=== PATIENT | male | born 1980 | race Two or more races ===

== ENCOUNTER 2017-05-24 08:39 | Outpatient (CLI) | payer OTHER ==
[~2017-05-24] VITALS: Ht 165.1 cm; Wt 74.2 kg
--- NOTE | ~2017-05-24 | OP ---
PATIENT NAME: JOSE ALFREDO [place] MEDICAL RECORD: [id number] :76 LOCATION:D.M2 D.2115 ADMISSION DATE:05/24/17 SURGEON: PINO JHAVERI MD DATE OF OPERATION: 05/25/2017 PROCEDURES: 1. PTCA stent LAD. 2. Selective coronary angiography. INDICATION: Angina and coronary artery disease. PROCEDURE IN DETAIL: After informed consent was obtained and after detailed description of risks, benefits as well as alternative therapies, the patient elected to proceed with angiogram and angioplasty. The left femoral area was prepped and draped in normal sterile fashion. Left femoral artery was cannulated via modified Seldinger technique with placement of 6-Azeri sheath. All catheters exchanged through this sheath. FINDINGS: The left anterior descending has 80% stenosis in mid vessel. This was addressed with a 2.5 x 14 mm Integrity stent. Result was 0% residual stenosis. OVERALL IMPRESSION: Successful percutaneous transluminal angioplasty stent of the left anterior descending going from 80% initial stenosis to 0% residual. TRANSINT:[id number] Voice Confirmation ID: [id number] DOCUMENT ID: [id number] PINO JHAVERI MD at 1056 CC: [id number] DICTATION DATE: 05/25/17 0833 EMPLOYEE BENEFITS MANAGER: 05/25/17 1223 DIS IN 05/26/[address] [address]
--- NOTE | ~2017-05-24 | HP ---
PATIENT: JOSE ALFREDO [place] MEDICAL RECORD: [id number] ACCOUNT: [id number] LOCATION:[address] : [birth year] ADMISSION DATE: 05/24/17 HISTORY AND PHYSICAL EXAMINATION ADMITTING DIAGNOSES: 1. Acute lateral myocardial infarction. 2. Coronary artery disease. 3. Diabetes. HISTORY OF PRESENT ILLNESS: This is a gentleman with no previous history of ischemic heart disease, who presents with chest discomfort, sudden onset today, has ST elevation in the lateral leads. PHYSICAL EXAMINATION: GENERAL APPEARANCE: Well-nourished, well-developed, appears stated age. Level of distress, comfortable. PSYCHIATRIC: Mental status, alert, normal affect. Orientation, oriented to time, place and person. EYES: Lids and conjunctiva, noninjected. No discharge, no pallor. ENT: Lips, teeth, gums, normal dentition. Oropharynx, no cyanosis, no pallor. NECK: Carotid arteries, bilateral normal upstroke, no bruits, no thrills. JUGULAR VEINS: No jugular venous pressure or distention. CERVICAL LYMPH NODES: Nontender, nonenlarged. THYROID: Not enlarged. Nontender. No nodules. LUNGS: Respiratory effort, unlabored. CHEST: Normal curvature. No thoracic deformity. No chest wall tenderness. Percussion, resonant. Auscultation, clear. No wheezes, no rales, no rhonchi. CARDIOVASCULAR: Precordial exam, nondisplaced. No heaves or pericardial thrills. Rate and rhythm, regular. Heart sounds, normal S1, normal S2. No S3, no gallop, no rub. Systolic murmur, not heard. Diastolic murmur, not heard. EXTREMITIES: No cyanosis, no edema. Peripheral pulses, full and equal in all extremities, except as noted. No bruits appreciated. ABDOMEN: Soft, nondistended. Normal aorta. No bruit. Nontender. No masses. Liver, nontender, no hepatomegaly. Spleen, nontender, no splenomegaly. MUSCULOSKELETAL: No joint tenderness. No joint swelling. No erythema. NEUROLOGICAL: Normal gait, normal strength, normal tone. SKIN: Warm and dry. REVIEW OF SYSTEMS: The patient reports easy bruising but reports no swollen glands. The patient reports no fever, no night sweats, no significant weight gain, no significant weight loss. No significant exercise tolerance. The patient reports no dry eyes, no irritation, no vision change. Patient reports no difficulty hearing and no ear pain. Patient reports no frequent nose bleeds or nose and sinus problems. Patient reports on arm pain on exertion. No shortness of breath while lying down. No history of heart murmur. Patient reports no cough, no wheezing or coughing up blood. Patient reports no abdominal pain, no vomiting. Normal appetite. No diarrhea and not vomiting blood. No nausea and no constipation. Patient reports no incontinence. No difficulty urinating. No hematuria. No increased frequency. Patient reports no muscle aches. No weakness, no arthralgias, no back pain. No swelling of the extremities. Patient reports no abnormal mole, no jaundice, no rashes. Reports no loss of consciousness. No weakness and no numbness. No seizures, dizziness, or headaches. The patient reports no depression, no sleep disturbance, feeling safe in a relationship and no alcohol abuse. Patient reports on fatigue. HISTORY AND PHYSICAL [id number] LIZETTJOSE ALFREDO Reports no runny nose or sinus pressure. No itching, no hives, and no frequent sneezing. OVERALL IMPRESSION: Acute lateral myocardial infarction. We will proceed with coronary angiography. Further care depends upon the findings of the angiography. TRANSINT:[id number] Voice Confirmation ID: [id number] DOCUMENT ID: [id number] PINO JHAVERI MD at 1056 CC: [id number] DICTATION DATE: 05/24/17 0933 TRAINING AND DEVELOPMENT HEAD: 05/24/17 1139 DIS IN 05/26/17 [place] [address]
--- NOTE | ~2017-05-24 | HEMODYNAMI ---
PATIENT:JOSE ALFREDO [facility] MEDICAL RECORD: [id number] : 76 [id number] AD[facility]ION DATE: 05/24/17 Generatedon:05/24/20179:44 Patient name: JOSE ALFREDO [facility] Patient #: [id number] SSN: : 1980 Date of study: 05/24/2017 Page: Of Hemodynamic Procedure Report Patient Data Patient Demographics Procedure consent was obtained First Name: JOSE ALFREDO Gender: Male Last Name: LIZETT : 1980 Patient #: [id number] Age: 36 year(s) Race: Other Additional ID: [id number] Contact details Address: [address] [place] [address] State: [place] City: [place] Zip code: [address] Past Medical History Allergies: No known allergies Admission Admission Data Admission Date: 05/24/2017 Admission Time: 8:39 Lab Results Lab Result Date: 05/24/2017 Lab Result Time: 8:50 CBC Name Units Result Min Max Hematocrit % 47.3 --(-*--)-- 42 54 Hemoglobin g/dl 17.1 --(---*)-- 13.5 17.5 Procedure Procedure Types Cath Procedure Diagnostic Procedure [facility] LH w/Coronaries PCI Procedure AMI/SVG/REGIONAL CLIMATE CHANGE ANALYST PTCA or Stent AMI-BMS/GUME Initial Procedure Description Procedure Date Procedure Date: 05/24/2017 Procedure Start Time: 9:13 Procedure End Time: 9:33 Procedure Staff Name Function Yusra Flanagan RT Scrub Giancarlo Larson RN Nurse Miles Silva MD Performing Physician Smith Balbuena RT Monitor Procedure Data Cath Procedure Fluoroscopy Diagnostic fluoroscopy Total fluoroscopy Time: 4.1 time: 4.1 min min Diagnostic fluoroscopy Total fluoroscopy dose: 760 dose: 760 mGy mGy Contrast Material Contrast Material Type Amount (ml) Isovue 300 111 Entry Location Entry Primary Successful Side Size Upsize Upsize Entry Closure Succes sful Closure Location (Fr) 1 (Fr) 2 (Fr) Remarks Device Remarks Femoral Right 6 Fr Exoseal artery Short Estimated blood loss: 10 ml Diagnostic catheters Device Type Used For End Catheter Placement MULTIPACK Pigtail 5 Fr Procedure catheter MULTIPACK JL 4.0 5Fr Procedure catheter MULTIPACK 3DRC 5Fr Procedure catheter Procedure Complications No complications Procedure Medications Medication Administration Route Dosage Oxygen NC 2 l/min Lidocaine 2% added to field 20 Heparin Flush Bag added to field 2 bags (1000units/500ml NS) 0.9% NaCl I.V. 100 ml/hr Versed I.V. 1 mg Fentanyl I.V. 50 mcg Lopressor I.V. 5 mg Heparin Bolus I.V. 4000 units Integrilin (Bolus I.V. 7.3 ml 2mg/ml) Hemodynamics Rest Heart Rate: 88 (bpm) Snapshots Pre Cath Intra NCS Post Cath Vital Signs Time Heart Resp SPO2 etCO2 NIBP (mmHg) Rhythm Pain Sedation Rate (ipm) (%) (mmHg) Status Level (bpm) 9:01:25 96 19 98 29.2 171/115(138) NSR 7 (11) 10(A) , Very intense 9:06:16 88 21 98 27.8 176/126(147) NSR 7 (11) 10(A) , Very intense 9:11:09 91 22 98 27 191/134(161) NSR 7 (11) 10(A) , Very intense 9:16:06 101 23 98 30 193/136(164) ST 0 (11) 9(A) , No pain 9:20:53 84 16 97 33 161/106(134) NSR 0 (11) 9(A) , No pain 9:25:37 74 22 97 27 145/97(115) NSR 0 (11) 10(A) , No pain 9:30:20 60 23 98 26.3 146/87(104) NSR 0 (11) 10(A) , No pain Medications Time Medication Route Dose Verified Delivered Reason Notes Effectiveness by by 9:02:05 Oxygen NC 2 Miles Mondragon used for l/min Shira Larson repairer maintenance building 9:02:18 Lidocaine 2% added 20ml Miles Aquino for local to vial Shira Silva MD anesthetic field 9:02:24 Heparin Flush added 2 Miles Aquino used for Bag to bags Shira Silva MD procedure (1000units/500ml field NS) 9:07:29 0.9% NaCl I.V. 100 Miles Mondragon Per physician ml/hr Shira Larson RN 9:13:13 Versed I.V. 1 mg Miles Mondragon for sedation Shira Larson RN 9:13:18 Fentanyl I.V. 50 Miles Mondragon for sedation mcg Shira Larson RN 9:16:09 Lopressor I.V. 5 mg Miles Mondragon Per physician Shira Larson RN 9:19:10 Heparin Bolus I.V. 4000 Miles Mondragon for verifie d units Shira Larson RN anticoagulation with dr silva 9:19:45 Integrilin I.V. 7.3 Miles Mondragon for wasted (Bolus 2mg/ml) ml Shira Larson RN antiplatelet 2.7 ml therapy of vial Procedure Log Time Note 8:50:59 Time tracking: Regular hours 8:51:03 Plan of Care:Hemodynamics will remain stable., Cardiac rhythm will remain stable., Comfort level will be maintained., Respiratory function will remain adequate., Patient/ family verbilizes understanding of procedure., Procedure tolerated without complication., Recovers from procedure without complications.. 8:51:31 Giancarlo Larson RN sent for patient. Start room use. 8:58:31 Patient received from ED to CCL 1 Alert and oriented. Tansferred to table in Supine position. 8:58:33 Correct patient and procedure confirmed by team. 8:58:33 Warm blankets applied, and zoey hugger turned on for patient comfort. 8:58:35 Signed procedure consent form obtained from patient. 8:58:36 ECG and BP/O2 sat monitors applied to patient. 9:00:23 Vital chart was started 9:00:35 Full Disclosure recording started 9:02:05 Oxygen 2 l/min NC was administered by Giancarlo Larson RN; used for procedure; 9:02:18 Lidocaine 2% 20ml vial added to field was administered by Miles Silva MD; for local anesthetic; 9:02:24 Heparin Flush Bag (1000units/500ml NS) 2 bags added to field was administered by Miles Silva MD; used for procedure; 9:06:18 Baseline sample Acquired. 9:06:35 Rhythm: sinus rhythm , w/ ST elevation 9:06:43 H&P Date Dictated: 05/24/2017 ER History on chart.. 9:06:45 Pre-op teaching completed and patient verbalized understanding. 9:06:45 Pre-procedure instructions explained to patient. 9:06:46 Family in waiting room. 9:06:49 Patient NPO since Midnight. 9:06:53 Patient allergic to No known allergies 9:06:55 Is the patient allergic to Iodine/contrast media? No. 9:06:56 Is patient on blood thinner?Yes 9:06:59 ACC The patient was administered the following blood thiners within the last 24 hours: ACCPlavix, ACCHeparin 9:07:01 Patient diabetic? Yes. Non Compliant. 9:07:16 If diabetic: On Metformin? No 9:07:29 0.9% NaCl 100 ml/hr I.V. was administered by Giancarlo Larson RN; Per physician; 9:08:17 Previous problem with sedation/anesthesia? No ? 9:08:19 Sleep apnea? No 9:08:19 Snore? Yes 9:08:20 Deviated septum? No 9:08:21 Opens mouth fully? Yes 9:08:22 Sticks out tongue? Yes 9:08:24 Airway obstruction? No ? 9:08:25 Dentures? No ? 9:08:28 Pre procedure: right dorsailis pedis pulse 2+ Normal; easily identifiable; not easily obliterated 9:08:29 Patient pain scale 7/10 ?. 9:08:40 IV patent on arrival in left antecubital with 0.9% NaCl at KVO. 9:09:02 Lab Result : Hemoglobin 17.1 g/dl 9:09:03 Lab Result : Hematocrit 47.3 % 9:09:07 Lab results completed and on chart. 9:09:09 Right groin area was prepped with chlora-prep and draped in sterile fashion 9:09:10 Sharps counted by scrub and verified by R.N. 9:09:10 Alarms reviewed by R. N. 9:09:14 Use device set Femoral Dx 9:09:16 Bag Decanter (2002) opened to sterile field. 9:09:16 ACIST Syringe (43189) opened to sterile field. 9:09:17 Medline Cath Pack ([id number]) opened to sterile field. 9:09:18 ACIST Manifold (64632) opened to sterile field. 9:09:18 ACIST Hand Control (00491) opened to sterile field. 9:09:19 Tegaderm 4 x 4 (1626W) opened to sterile field. 9::20 PERCUTANEOUS ENTRY 19GA needle opened to sterile field. 9:09:21 DIAGNOSTIC Multipack 5Fr catheter set (MZ2783) opened to sterile field. 9:09:24 DIAGNOSTIC WIRE .035 260cm J wire (087979) opened to sterile field. :: Final Timeout: patient, procedure, and site verified with staff and physician. All members of the team are in agreement. : --------ALL STOP TIME OUT------ : Physician arrived 9::43 Right groin site verified by team. 9::46 Physical assessment completed. ASA score P 4 - A patient with severe systemic disease that is a constant threat to life as per Miles Silva MD. 9::48 Sedation plan: IV Moderate Sedation Medication:Versed, Fentanyl 9:12:21 Zero performed for pressure channel P1 9:12:25 Zero performed for pressure channel P1 9:: SHEATH 6Fr Prelude ([id number]) opened to sterile field. 9:13:13 Versed 1 mg I.V. was administered by Giancarlo Larson RN; for sedation; ::18 Fentanyl 50 mcg I.V. was administered by Giancarlo Larson RN; for sedation; 9:13:21 Procedure started. 9:13:23 Local anesthetic to right femoral artery with Lidocaine 2% by Miles Silva MD.INITIAL ACCESS ONLY 9:14:22 A 6 Fr Short sheath was inserted into the Right Femoral artery 9:15:07 A MULTIPACK Pigtail 5 Fr catheter was advanced over the wire and used for Procedure. 9:15:31 LV gram done using CHONG 9:15:42 EF : 20 % 9:15:59 Catheter exchanged over wire. 9:16:09 Lopressor 5 mg I.V. was administered by Giancarlo Larson RN; Per physician; 9:16:10 A MULTIPACK JL 4.0 5Fr catheter was advanced over the wire and used for Procedure. 9:17:09 LCA angiography performed. 9:19:10 Heparin Bolus 4000 units I.V. was administered by Giancarlo Larson RN; for anticoagulation; verified with dr silva 9:19:15 Catheter exchanged over wire. 9:19:20 A MULTIPACK 3DRC 5Fr catheter was advanced over the wire and used for Procedure. 9:19:25 RCA angiography performed. 9::28 Catheter exchanged over wire. 9:19:34 GUIDE 6FR XB 4.0 catheter ([id number]) opened to sterile field. 9:19:44 6 Fr XB 4 guide catheter was inserted over the wire 9:19:45 Integrilin (Bolus 2mg/ml) 7.3 ml I.V. was administered by Giancarlo Larson RN; for antiplatelet therapy; wasted 2.7 ml of vial 9:20:05 CHOICE PT Extra Support J 300cm guide wire ([id number]) opened to sterile field. 9:20:17 choice PT wire advanced. 9:20:36 Wire advanced across lesion. 9:21:04 Inflate balloon Inflation number: 1 A EMERGE OTW 3.0 x 20 balloon ([id number]) was prepped and advanced across the Prox CX, then inflated to 13 RUPESH for 0:10 (min:sec). 9:21:18 Balloon removed over the wire. 9:23:10 Place stent Inflation Number: 2 A INTEGRITY OTW 4.0 X 18 stent ([id number]) was prepped and advanced across the Prox CX. The stent was deployed at 15 RUPESH for 0:10 (min:sec). 9:23:37 Wire removed. 9:23:37 Stent catheter was removed intact over wire. 9:23:39 Guide catheter removed. 9:23:48 EXOSEAL 6Fr (EX600) opened to sterile field. 9:24:13 Sheath removed intact; hemostasis achieved with Exoseal to the Right Femoral artery. 9:24:15 Procedure ended.(Physican Out) 9:27:12 Fluoroscopy time 04.10 minutes. 9:27:15 Fluoroscopy dose: 760 mGy 9:27:15 Flurop Dose total: 760 9:27:18 Contrast amount:Isovue 300 111ml. 9:27:31 Sharps counted by scrub and verified by R.N. 9:28:23 Insertion/operative site no bleeding no hematoma. 9:28:25 Post-op/insertion site Right Femoral artery dressed using a 4 x 4 and Tegaderm. 9:28:29 Post right femoral artery:stable, soft, clean and dry 9:28:41 Post Procedure Pulses reassessed and unchanged 9::44 Post procedure: right dorsailis pedis pulse 2+ Normal; easily identifiable; not easily obliterated. 9:28:47 Post-procedure physical assessment completed. ASA score P 4 - A patient with severe systemic disease that is a constant threat to life as per Miles Silva MD. 9:29:23 Post procedure rhythm: sinus rhythm 9:: Estimated blood loss: 10 ml 9:29:28 Patient needs reinforcement of post procedure teaching. 9:29:28 Post procedure instruction explained to patient.Patient verbalizes understanding. 9:29:57 Procedure type changed to Cath procedure, Diagnostic procedure, LHC, LHC w/Coronaries, PCI procedure, AMI/SVG/REGIONAL CLIMATE CHANGE ANALYST PTCA or Stent, AMI-BMS/GUME Initial 9:32:26 INFLATOR Merit BasixCompak (XX7686) opened to sterile field. 9:32:53 Procedure and supply charges have been captured, reviewed, submitted and are correct. 9:32:55 Procedure Complication : No complications 9:33:04 Vital chart was stopped 9:33:05 See physician's report for complete and final results. 9:33:07 Report given to PCU. 9:33:10 Patient transfered to PCU with Stretcher. 9:33:15 Full Disclosure recording stopped 9:33:15 Procedure ended. 9:33:22 End room use (Document Last) 9:43:13 FEMSTOP Gold ([id number]) opened to sterile field. 9:43:33 Femstop placed over the right femoral artery at 163 mmHg. Hemostasis achieved. Intervention Summary Intervention Notes Time ActionType Lesion and Equipment Action# Pressure Duration Attributes Used 9:21:04 Inflate Prox CX EMERGE OTW 1 13 00:10 balloon 3.0 x 20 balloon ([id number]) 9:23:10 Place stent Prox CX INTEGRITY 2 15 00:10 OTW 4.0 X 18 stent ([id number]) Device Usage Item Name Manufacture Quantity Catalog Number Hospital Part Current Mini mal Lot# / Charge Number Stock Stock Serial# Code ACIST Acist 1 91263 601100 428859 101470 20 Straatum Processware (58320) Urban Airship Bag Decanter Microtek 1 689774 59808 221711 5 (2002S) Medical Inc. Medline Cath Cardinal 1 [id number] 262867 20820 429546 5 Pack Health ([id number]) ACIST Hand Acist 1 71936 479023 125275 587946 5 Control Medical (50001) Systems Inc ACIST Acist 1 36701 868636 564628 015887 5 Manifold Medical (47026) Systems Inc Tegaderm 4 x 3M 1 1626W 687466 190767 893015 5 4 (1626W) PERCUTANEOUS Cook Medical 1 S02558 617167 840834 5 ENTRY 19GA needle DIAGNOSTIC Cardinal 1 ET1482 421299 68114 836289 30 Multipack VoxPopMe 5Fr catheter set (BI3978) DIAGNOSTIC [facility] Conner 1 172363 133309 835400 343403 30 WIRE .035 260cm J wire (363710) SHEATH 6Fr Merit 1 [id number] 394062 280886 910493 5 Prelude Medical ([id number]) MULTIPACK Cardinal 1 560116 5 Pigtail 5 Fr Health catheter MULTIPACK JL Cardinal 1 762260 5 4.0 5Fr Health catheter MULTIPACK Cardinal 1 018012 5 3DRC 5Fr Health catheter GUIDE 6FR XB Cardinal 1 [id number] 393498 167255 192203 2 4.0 catheter VoxPopMe ([id number]) CHOICE PT Gaffney 1 [id number] 159347 287364 840503 5 Extra Scientific Support J 300cm guide wire ([id number]) EMERGE OTW Gaffney 1 [id number] 025238 907977 729443 5 [id number] 3.0 x 20 Scientific balloon ([id number]) INTEGRITY Medtronic 1 [id number] 476984 393684 3 [id number] OTW 4.0 X 18 stent ([id number]) EXOSEAL 6Fr Cardinal 1 EX600 266076 407080 464367 10 (EX600) Health INFLATOR Merit 1 OV7726 201997 550655 750193 15 [facility] Medical BasixCompak (BN1496) FEMSTOP Gold [facility] Conner 1 I75026 214632 906920 448248 5 ([id number]) Signature Audit [place] Stage Time Signature Unsigned Intra-Procedure 05/24/2017 Smith Balbuena RT(R); 9:34:01 AM RT(R); Yusra Meng RT(R) 05/24/2017 Counts RT(R) 9:43:10 AM Intra-Procedure 05/24/2017 Smith Balbuena 9:44:36 AM RT(R) Signatures Monitor : Smith Balbuena RT Signature : Date : Time : [place] [id number] [place] [address]
--- NOTE | ~2017-05-24 | OP ---
PATIENT NAME: JOSE ALFREDO [facility] MEDICAL RECORD: [id number] :76 LOCATION:D.M2 D.2115 ADMISSION DATE:05/24/17 SURGEON: PINO JHAVERI MD DATE OF OPERATION: 05/24/2017 PROCEDURES: 1. PTCA stent left circumflex. 2. Left heart catheterization. 3. Selective coronary angiography. 4. Left ventriculogram. INDICATION: Acute lateral myocardial infarction. PROCEDURE IN DETAIL: After informed consent was obtained and after a detailed description of risks, benefits as well as alternative therapies, the patient elected to proceed with angiogram and angioplasty. The right femoral area was prepped and draped in normal sterile fashion. Right femoral artery was cannulated via modified Seldinger technique with placement of 6-Malawian sheath. All catheters exchanged through this sheath. FINDINGS: The left ventriculogram was performed in standard 30-degree CHONG view, reveals global hypokinesis throughout all segments. Overall ejection fraction estimated at 25% to 30%. SELECTIVE CORONARY ANGIOGRAPHY: 1. Left main is with no significant angiographic disease. 2. Left anterior descending has at least 70% stenosis in the mid vessel. 3. Left circumflex is very large vessel with 99% stenosis in the mid vessel. 4. The right coronary artery has moderate irregularities, but no flow-limiting stenosis. PTCA STENT OF LEFT CIRCUMFLEX: The stent used was a 4.0 x 18 mm Integrity. Result was 0% residual stenosis. OVERALL IMPRESSION: Successful percutaneous transluminal coronary angioplasty stent of the left circumflex going from 99% initial stenosis to 0% residual. TRANSINT:[id number] Voice Confirmation ID: [id number] DOCUMENT ID: [id number] PINO JHAVERI MD at 1056 CC: [id number] DICTATION DATE: 05/24/17 0935 PHOTOGRAPHIC EQUIPMENT ASSEMBLER: 05/24/17 1242 DIS IN 05/26/17 [place] [address]
--- NOTE | ~2017-05-24 | HEMODYNAMI ---
PATIENT:JOSE ALFREDO PHOENIX MEDICAL RECORD: [id number] : [birth year] LOCATION:[address] [facility]# [id number] ADMISSION DATE: 05/24/17 Generatedon:05/25/20178:31 Patient name: JOSE ALFREDO PHOENIX Patient #: [id number] SSN: : 1980 Date of study: 05/25/2017 Page: Of Hemodynamic Procedure Report Patient Data Patient Demographics Procedure consent was obtained First Name: JOSE ALFREDO Gender: Male Last Name: LIZETT : 1980 Patient #: [id number] Age: 36 year(s) Race: Other Additional ID: [id number] Contact details [address]: [address] [place] [address] State: [place] City: [place] Zip code: [address] Past Medical History Allergies: No known allergies Admission Admission Data Admission Date: 05/24/2017 Admission Time: 10:52 Room #: D2115 Lab Results Lab Result Date: 05/25/2017 Lab Result Time: 0:00 Biochemistry Name Units Result Min Max Creatinine mg/dl 0.9 --(-*--)-- 0.6 1.3 Procedure Procedure Types Cath Procedure PCI Procedure Coronary Stent Coronary Stent Initial Procedure Description Procedure Date Procedure Date: 05/25/2017 Procedure Start Time: 8:20 Procedure End Time: 8:29 Procedure Staff Name Function Miles Silva MD Performing Physician Kayla Guadalupe RT Scrub Trent Ennis RT Monitor Giancarlo Larson RN Nurse Procedure Data Cath Procedure Fluoroscopy Diagnostic fluoroscopy Total fluoroscopy Time: 1.7 time: 1.7 min min Diagnostic fluoroscopy Total fluoroscopy dose: 386 dose: 386 mGy mGy Contrast Material Contrast Material Type Amount (ml) Isovue 300 35 Entry Location Entry Primary Successful Side Size Upsize Upsize Entry Closure Succes sful Closure Location (Fr) 1 (Fr) 2 (Fr) Remarks Device Remarks Femoral Left 6 Fr Exoseal artery Short Estimated blood loss: 10 ml Procedure Complications No complications Procedure Medications Medication Administration Route Dosage Oxygen NC 2 l/min Lidocaine 2% added to field 20 Heparin Flush Bag added to field 2 bags (1000units/500ml NS) 0.9% NaCl I.V. 100 ml/hr Radial Cocktail I.A. 1 syringe (Verapomil 2mg/Nitro 400mcg/Heparin 1500units) Versed I.V. 1 mg Fentanyl I.V. 50 mcg Versed I.V. 1 mg Fentanyl I.V. 50 mcg Heparin Bolus I.V. 4000 units Hemodynamics Rest HGB: 17.1 (g/dl) Heart Rate: 55 (bpm) Snapshots Pre Cath Intra NCS Post Cath Vital Signs Time Heart Resp SPO2 etCO2 NIBP (mmHg) Rhythm Pain Status Sedation Rate (ipm) (%) (mmHg) Level (bpm) 7:55:39 65 26 97 27.2 164/107(127) NSR w/ ST 4 (11) , 10(A) Elevation Distressing 7:59:59 72 29 95 25.7 164/112(124) NSR w/ ST 4 (11) , 10(A) Elevation Distressing 8:04:15 66 27 96 24.2 152/103(126) NSR w/ ST 4 (11) , 10(A) Elevation Distressing 8:08:31 65 18 95 28.7 146/105(117) NSR w/ ST 4 (11) , 10(A) Elevation Distressing 8:12:43 63 17 95 24.9 132/90(105) NSR w/ ST 4 (11) , 10(A) Elevation Distressing 8:16:51 63 14 96 26.5 128/92(106) NSR w/ ST 0 (11) , No 9(A) Elevation pain 8:21:03 58 16 95 32.5 119/71(84) NSR w/ ST 0 (11) , No 9(A) Elevation pain 8:25:11 66 14 97 30.2 114/80(93) NSR w/ ST 0 (11) , No 9(A) Elevation pain 8:29:15 59 15 96 30.2 110/84(93) NSR w/ ST 0 (11) , No 10(A) Elevation pain Medications Time Medication Route Dose Verified Delivered Reason Notes Effectiveness by by 8:10:45 Oxygen NC 2 l/min Miles Mondragon used for Tauth MD Larson supervisor lamp shades 8:10:51 Lidocaine 2% added 20ml Miles Mondragon used for to vial Shira Larson RN procedure field 8:11:00 Heparin Flush added 2 bags Miles Mondragon used for Bag to Shira Larson RN procedure (1000units/500ml field NS) 8:11:08 0.9% NaCl I.V. 100 Miles Mondragon Per physician ml/hr Shira Larson RN 8:11:18 Radial Cocktail I.A. 1 Miles Aquino for not u sed (Verapomil syringe Shira Silva MD vasodilation 2mg/Nitro 400mcg/Heparin 1500units) 8:13:21 Versed I.V. 1 mg Miles Mondragon for sedation Shira Larson RN 8:13:27 Fentanyl I.V. 50 mcg Miles Mondragon for sedation Shira Larson RN 8:20:13 Versed I.V. 1 mg Miles Mondragon for sedation Shira Larson RN 8:20:16 Fentanyl I.V. 50 mcg Miles Mondragon for sedation Shira Larson RN 8:22:42 Heparin Bolus I.V. 4000 Miles Mondragon for verif ied units Shira Larson RN anticoagulation with dr silva Procedure Log Time Note 7:35:00 Time tracking: Regular hours 7:35:03 Plan of Care:Hemodynamics will remain stable., Cardiac rhythm will remain stable., Comfort level will be maintained., Respiratory function will remain adequate., Patient/ family verbilizes understanding of procedure., Procedure tolerated without complication., Recovers from procedure without complications.. 7:35:04 Signed procedure consent form obtained from patient. 7:35:15 H&P Date Dictated: 05/24/2017 Within 30 days and on chart.. 7:35:56 Lab Result : Creatinine 0.9 mg/dl 7:36:23 Giancarlo Larson RN sent for patient. Start room use. 7:41:41 Patient allergic to No known allergies 7:47:08 Patient received from Med II to CCL 2 Alert and oriented. Tansferred to table in Supine position. 7:47:08 Warm blankets applied, and zoey hugger turned on for patient comfort. 7:47:09 Correct patient and procedure confirmed by team. 7:47:10 ECG and BP/O2 sat monitors applied to patient. 7:54:30 Vital chart was started 7:54:31 Baseline sample Acquired. 7:56:01 Baseline sample Acquired. 7:56:40 Rhythm: sinus rhythm 7:56:46 Full Disclosure recording started 7:56:47 Pre-procedure instructions explained to patient. 7:56:49 Pre-op teaching completed and patient verbalized understanding. 7:56:53 Family in patients room. 7:56:56 Patient NPO since Midnight. 7:56:59 Is the patient allergic to Iodine/contrast media? No. 7:57:21 Was the patient premedicated? No 7:58:07 Is patient on blood thinner?Yes 7:58:11 ACC The patient was administered the following blood thiners within the last 24 hours: ACCPlavix 7:59:05 Patient diabetic? Yes. 7:59:08 If diabetic: On Metformin? No 7:59:47 PATIENT IS NON COMPLIANT 7:59:57 ----Pre-sedation anethsthesia assessment.---- 8:00:03 Previous problem with sedation/anesthesia? No ? 8:00:30 Snore? Yes 8:00:32 Sleep apnea? No 8:00:34 Deviated septum? No 8:00:35 Opens mouth fully? Yes 8:00:36 Sticks out tongue? Yes 8:00:38 Airway obstruction? No ? 8:01:20 IV patent on arrival in right hand with 0.9% NaCl at [facility]. 8:01:41 Lab results completed and on chart. 8:01:49 Right Radial & Left Groin area was prepped with chlora-prep and draped in sterile fashion 8:01:51 Alarms reviewed by R. N. 8:01:52 Sharps counted by scrub and verified by R.N. 8:04:44 Pre procedure: right dorsailis pedis pulse 2+ Normal; easily identifiable; not easily obliterated 8:04:50 Modified Mikal's test Ulnar < 7 seconds 8:05:03 Patient pain scale 0/10 ?. 8:10:45 Oxygen 2 l/min NC was administered by Giancarlo Larson RN; used for procedure; 8:10:51 Lidocaine 2% 20ml vial added to field was administered by Giancarlo Larson RN; used for procedure; 8:11:00 Heparin Flush Bag (1000units/500ml NS) 2 bags added to field was administered by Giancarlo Larson RN; used for procedure; 8:11:08 0.9% NaCl 100 ml/hr I.V. was administered by Giancarlo Larson RN; Per physician; 8:11:18 Radial Cocktail (Verapomil 2mg/Nitro 400mcg/Heparin 1500units) 1 syringe I.A. was administered by Miles Silva MD; for vasodilation; not used 8:12:16 --------ALL STOP TIME OUT------ 8:12:17 Final Timeout: patient, procedure, and site verified with staff and physician. All members of the team are in agreement. 8:12:20 Right Radial & Left Groin site verified by team. 8:12:23 Physical assessment completed. ASA score P 2 - A patient with mild systemic disease as per Miles Silva MD. 8:12:26 Sedation plan: IV Moderate Sedation Medication:Versed, Fentanyl 8:12:33 Use device set Radial Dx or PCI 8:12:37 Tegaderm 4 x 4 (1626W) opened to sterile field. 8:12:39 ACIST Hand Control (65675) opened to sterile field. 8:12:39 ACIST Manifold (76521) opened to sterile field. 8:12:40 ACIST Syringe (54952) opened to sterile field. 8:12:41 Medline Cath Pack ([id number]) opened to sterile field. 8:12:42 Bag Decanter () opened to sterile field. 8:12:43 DIAGNOSTIC WIRE .035 260cm J wire (060455) opened to sterile field. 8:12:44 MBrace Wrist Support ([id number]) opened to sterile field. 8:12:47 Use device set TAUTH PCI 8:12:51 CHOICE PT Extra Support 182cm wire ([id number]) opened to sterile field. 8:12:56 INFLATOR Merit BasixCompak (ZF9858) opened to sterile field. 8:13:21 Versed 1 mg I.V. was administered by Giancarlo Larson RN; for sedation; 8:13:21 SHEATH 6Fr Prelude Radial ([id number]) opened to sterile field. 8:13:27 Fentanyl 50 mcg I.V. was administered by Giancarlo Larson RN; for sedation; 8:18:21 GUIDE 6FR XBLAD 3.5 catheter ([id number]) opened to sterile field. 8:18:54 Physician has opted for femoral approach. 8:19:41 PERCUTANEOUS ENTRY 19GA needle opened to sterile field. 8:20:13 Versed 1 mg I.V. was administered by Giancarlo Larson RN; for sedation; 8:20:16 Fentanyl 50 mcg I.V. was administered by Giancarlo Larson RN; for sedation; 8:20:17 Procedure started. 8:20:48 Local anesthetic to left femerol artery with Lidocaine 2% by Miles Silva MD.INITIAL ACCESS ONLY 8:20:59 A 6 Fr Short sheath was inserted into the Left Femoral artery 8:21:09 6 Fr XBLAD 3.5 guide catheter was inserted over the wire 8:22:01 Baseline sample Acquired. 8:22:09 LCA angiography performed. 8:22:42 Heparin Bolus 4000 units I.V. was administered by Giancarlo Larson RN; for anticoagulation; verified with dr silva 8:23:18 Choice PT XS wire advanced. 8:23:42 Wire advanced across lesion. 8:24:52 Place stent Inflation Number: 1 A INTEGRITY RX 2.5 x 14 stent ([id number]) was prepped and advanced across the Mid LAD. The stent was deployed at 13 RUPESH for 0:10 (min:sec). 8:25:12 Stent catheter was removed intact over wire. 8:25:12 Wire removed. 8:25:13 Guide catheter removed. 8:25:16 EXOSEAL 6Fr (EX600) opened to sterile field. 8:25:25 Sheath removed intact; hemostasis achieved with Exoseal to the Left Femoral artery. 8:25:27 Procedure ended.(Physican Out) 8:28:33 Fluoroscopy time 01.70 minutes. 8:28:37 Fluoroscopy dose: 386 mGy 8:28:37 Flurop Dose total: 386 8::41 Contrast amount:Isovue 300 35ml. 8:28:43 Sharps counted by scrub and verified by R.N. 8:28:45 Insertion/operative site no bleeding no hematoma. 8:28:48 Post-op/insertion site Left Femoral artery dressed using a 4 x 4 and Tegaderm. 8:28:50 Post Procedure Pulses reassessed and unchanged 8:28:53 Post-procedure physical assessment completed. ASA score P 2 - A patient with mild systemic disease as per Miles Silva MD. 8:28:56 Post procedure rhythm: unchanged. 8:28:59 Estimated blood loss: 10 ml 8:29:00 Post procedure instruction explained to patient.Patient verbalizes understanding. 8:29:01 Patient needs reinforcement of post procedure teaching. 8:29:08 Procedure Complication : No complications 8:29:10 Procedure and supply charges have been captured, reviewed, submitted and are correct. 8:29:32 Vital chart was stopped 8:29:33 See physician's report for complete and final results. 8:29:34 Report given to PCU. 8:29:37 Patient transfered to PCU with Bed. 8:29:40 Procedure ended. 8:29:40 Full Disclosure recording stopped 8:31:11 End room use (Document Last) Intervention Summary Intervention Notes Time ActionType Lesion and Equipment Action# Pressure Duration Attributes Used 8:24:52 Place stent Mid LAD INTEGRITY RX 1 13 00:10 2.5 x 14 stent ([id number]) Device Usage Item Name Manufacture Quantity Catalog Number Hospital Part Current M inimal Lot# / Charge Number Stock Stock Serial# Code Tegaderm 4 x 4 3M 1 [id number] 190964 352553 5 (1626W) ACIST Hand Acist 1 72251 230285 979702 055697 5 Control (76052) [employer] Inc ACIST Manifold Acist 1 64191 059172 062126 936070 5 (07837) [employer] ACIST Syringe Acist 1 18471 967086 005395 841211 2 0 (03935) Medical Systems Inc Medline Cath Cardinal 1 [id number] 822840 97028 331322 5 Pack Health ([id number]) Bag Decanter Microtek 1 2001S 387056 52936 283202 5 (2001S) Medical Inc. DIAGNOSTIC WIRE [facility] 1 315391 340806 148163 342634 3 0 .035 260cm J wire (844103) MBrace Wrist Advanced 1 140-0250-00 562335 80437 054142 5 Support Vascular ([id number]) Dynamics CHOICE PT Extra Sparks 1 [id number] 542577 706694 830421 5 Support 182cm Scientific wire ([id number]) INFLATOR Merit Merit 1 EQ3661 496200 586021 090190 1 5 BasixComVtion Wireless Technology Medical (VJ3017) SHEATH 6Fr Merit 1 [id number] 939927 843833 717174 5 Prelude Radial Medical ([id number]) GUIDE 6FR XBLAD Cardinal 1 [id number] 112010 281777 788836 1 0 3.5 catheter Health (14618036) PERCUTANEOUS Cook Medical 1 H41973 472365 531957 5 ENTRY 19GA needle INTEGRITY RX Medtronic 1 [id number] 176313 242309 640478 5 [id number] 2.5 x 14 stent ([id number]) EXOSEAL 6Fr Cardinal 1 EX600 101050 504357 345683 1 0 (EX600) Health Signature Audit [place] Stage Time Signature Unsigned Intra-Procedure 05/25/2017 Trent Ennis 8:31:23 AM RT(R) Signatures Monitor : Trent Ennis RT Signature : Date : Time : [place] [id number] [facility] [place] [address]
--- NOTE | ~2017-05-24 | DS ---
PATIENT:JOSE ALFREDO PHOENIX :76 MEDICAL RECORD: [id number] DISCHARGE SUMMARY ADMISSION DATE: 05/24/17 DISCHARGE DATE: 05/26/17 DATE OF SERVICE: 05/25/2017. DIAGNOSES: 1. Acute lateral myocardial infarction. 2. Percutaneous transluminal coronary angioplasty stent left anterior descending and left circumflex this admission. 3. Coronary artery disease. 4. Diabetes. 5. Hyperlipidemia. HOSPITAL COURSE: This is a gentleman who is very noncompliant diabetic who presents with the sudden onset of chest discomfort, found to have acute lateral myocardial infarction, underwent cardiac catheterization revealing subtotal occlusion of his left circumflex, underwent successful PTCA stent of the left circumflex as well had concomitant disease of the LAD, underwent successful PTCA stent of the LAD, was discharged home with the addition of Glucotrol, aspirin, Plavix, Pravachol, and Lopressor to his medical regimen. He will follow up with [facility] in 1 month. TRANSINT:[id number] Voice Confirmation ID: [id number] DOCUMENT ID: [id number] PINO JHAVERI MD at 1056 CC: [id number] DICTATION DATE: 05/25/17 0832 ESTHETICIAN/SKIN THERAPIST: 05/25/17 1259 DIS IN 05/26/17 [id number] [place] [address]
[2017-05-24 08:58] LABS: BASOPHILS 0.1 % (0-2); EOSINOPHILS 0 % (0-7); HEMATOCRIT 47.3 % (42.0-54.0); HEMOGLOBIN 17.1 g/dL (13.5-17.5); IMMATURE GRANULOCYTES 0.4 % (0-5); LYMPHOCYTES 5.1 % (15-50); MCH 32.1 pg (26.0-34.0); MCHC 36.2 g/dL (31.0-37.0); MCV 88.7 fL (80.0-100.0); MEAN PLATELET VOLUME 11.6 fL (7.4-10.4); NEUTROPHILS 89.4 % (40-80); PLATELET COUNT 235 10x3/uL (130-400); RBC 5.33 10x6/uL (4.20-6.10); RDW 12.1 % (11.5-14.5); WBC 18.3 10x3/uL (4.8-10.8)
[2017-05-24 09:06] LABS: APTT 25.8 SECONDS (22.8-39.4); INR 1.09 (0.85-1.17); PROTIME 13.7 SECONDS (11.6-15.0)
[2017-05-24 09:27] LABS: ALBUMIN 4.3 g/dL (3.4-5.0); ALKALINE PHOSPHATASE 205 U/L (46-116); ALT (SGPT) 27 U/L (10-68); BILIRUBIN - TOTAL 0.72 mg/dL (0.2-1.3); CALCIUM 8.5 mg/dL (8.5-10.1); CARBON DIOXIDE 18.4 mmol/L (21.0-32.0); CHLORIDE - SERUM 97 mmol/L (98-107); CHOL - HDL RATIO 5.8 ratio (2.3-4.9); CHOLESTEROL, TOTAL 210 mg/dL (0-200); CREATININE - SERUM 0.9 mg/dL (0.6-1.3); HDL CHOLESTEROL 36 mg/dL (32-96); LDL CHOLESTEROL 142 mg/dL (0-100); LDL-HDL RATIO 3.9 ratio (1.5-3.5); POTASSIUM - SERUM 3.4 mmol/L (3.5-5.1); PROTEIN - SERUM 8.4 g/dL (6.4-8.2); SODIUM 135 mmol/L (136-145); TRIGLYCERIDE 163 mg/dL (30-200); UREA NITROGEN 11 mg/dL (7-18); eGFR NON AFRICAN AMERICAN > 90 mL/min (90-120)
[2017-05-24 09:29] LABS: CALC OSMOLALITY 292 mosm/kg (275-300); CREATINE KINASE 1135 UL (21-232)
[2017-05-24 09:30] LABS: GLUCOSE 524 mg/dL (74-106)
[2017-05-24 11:02] VITALS: BP 143/103; BMI 29.6
[2017-05-24 15:07] VITALS: BP 172/116
[2017-05-24 20:00] VITALS: BP 167/119
[2017-05-25 00:49] VITALS: BP 162/118
[2017-05-25 06:46] VITALS: BP 169/127
[2017-05-25 07:44] VITALS: BP 157/108
[2017-05-25 10:42] VITALS: Ht 165.1 cm; Wt 74.2 kg
[2017-05-25 14:46] VITALS: BP 127/86
[2017-05-25 21:33] VITALS: BP 163/96
[2017-05-26 01:40] VITALS: BP 126/79
[2017-05-26 05:35] VITALS: BP 135/83
[2017-05-26] MEDS ORDERED: AMOXICILLIN500 M1 PO (09:22)
[2017-05-26] MEDS ORDERED: GLIPIZIDE10 MG PO (09:23)
[2017-05-26] MEDS ORDERED: LOPRESSOR25 MG PO (09:23)
[2017-05-26] MEDS ORDERED: PRAVACHOL20 MG PO (09:24)
[2017-05-26] MEDS ORDERED: PLAVIX75 MG PO (09:27)
[2017-05-26] MEDS ORDERED: ASPIRIN81 MG PO (09:28)
== END 2017-05-26 10:22 | disposition home or self-care (01) ==
LOC: OBSVTIME → D.OPS 08:39 → D.ER 08:39 → D.M2 10:18 → OBSVTIME 10:52 → D.M2 10:52 → D.ER 10:52 → EDSTATUS 05-25 08:00 → D.M2 05-26 10:22 → D.OPS 05-26 10:22 → D.M2 05-26 10:22
PROVIDERS: Emergency Medicine
DX: I21.29 ST elevation (STEMI) myocardial infarction involving other sites (principal); I25.119 Atherosclerotic heart disease of native coronary artery with unspecified angina pectoris; E11.9 Type 2 diabetes mellitus without complications; E78.5 Hyperlipidemia, unspecified; Z91.19 Patient's noncompliance with other medical treatment and regimen; Z01.812 Encounter for preprocedural laboratory examination

== ENCOUNTER 2017-05-31 09:28 | Emergency (ER) | payer OTHER ==
[2017-05-25 10:42] VITALS: BMI 29.4
[~2017-05-31 09:28] MED LIST: AMOXICILLIN500 M1 PO; ASPIRIN81 MG PO; GLIPIZIDE10 MG PO; LOPRESSOR25 MG PO; PLAVIX75 MG PO; PRAVACHOL20 MG PO
[2017-05-31 10:22] LABS: BASOPHILS 0.2 % (0-2); EOSINOPHILS 0.2 % (0-7); HEMATOCRIT 40.7 % (42.0-54.0); HEMOGLOBIN 14.3 g/dL (13.5-17.5); IMMATURE GRANULOCYTES 0.4 % (0-5); LYMPHOCYTES 13.7 % (15-50); MCH 32.1 pg (26.0-34.0); MCHC 35.1 g/dL (31.0-37.0); MCV 91.3 fL (80.0-100.0); MEAN PLATELET VOLUME 11.3 fL (7.4-10.4); MONOCYTES 7.4 % (2-11); NEUTROPHILS 78.1 % (40-80); PLATELET COUNT 245 10x3/uL (130-400); RBC 4.46 10x6/uL (4.20-6.10); WBC 10.9 10x3/uL (4.8-10.8)
[2017-05-31 10:42] LABS: ALBUMIN 2.7 g/dL (3.4-5.0); ALKALINE PHOSPHATASE 91 U/L (46-116); ALT (SGPT) 42 U/L (10-68); CALC OSMOLALITY 283 mosm/kg (275-300); CALCIUM 8.2 mg/dL (8.5-10.1); CARBON DIOXIDE 22.1 mmol/L (21.0-32.0); CHLORIDE - SERUM 103 mmol/L (98-107); CREATININE - SERUM 0.9 mg/dL (0.6-1.3); POTASSIUM - SERUM 3.9 mmol/L (3.5-5.1); PROTEIN - SERUM 6.9 g/dL (6.4-8.2); SODIUM 136 mmol/L (136-145); UREA NITROGEN 14 mg/dL (7-18); eGFR NON AFRICAN AMERICAN > 90 mL/min (90-120)
[2017-05-31 10:43] LABS: GLUCOSE 298 mg/dL (74-106)
[2017-05-31 10:58] LABS: PRO BNP 763 pg/mL (0-125)
[2017-05-31 11:01] LABS: TROPONIN-I 6.527 ng/mL (0.000-0.060)
== END 2017-05-31 14:40 | disposition home or self-care (01) ==
LOC: D.ER 09:28
PROVIDERS: Emergency Medicine; Physician Assistant
DX: R07.81 Pleurodynia (principal); Z98.890 Other specified postprocedural states; R06.02 Shortness of breath; F17.200 Nicotine dependence, unspecified, uncomplicated